=== PATIENT | female | born 1995 | race Caucasian/White ===

== ENCOUNTER 2020-11-13 13:32 | Outpatient (REF) | payer OTHER, SELFPAY ==
[2020-11-13 16:59] LABS: Alanine Aminotransferase 42 U/L (0-31); Albumin Level 4.8 g/dL (3.5-5.0); Alkaline Phosphatase 65 U/L (39-117); Anion Gap 13 (12-20); Aspartate Amino Transferase 28 U/L (5-31); Bilirubin Total 0.5 mg/dL (0.0-1.0); Blood Urea Nitrogen 12 mg/dL (9-16); Carbon Dioxide 28 mmol/L (22-29); Chloride 104 mmol/L (96-108); Cholesterol 191 mg/dL; Estimated Glomerular Filt Rate > 60; Glucose Fasting 82 mg/dL (60-99); HDL Cholesterol 34 mg/dL; LDL Cholesterol Calculated 126 mg/dl; Sodium 141 mmol/L (135-145); Total Protein 7.3 g/dL (6.5-8.0); Triglycerides 157 mg/dL
[2020-11-13 17:19] LABS: TSH reflex Free T4 2.68 uIU/mL (0.32-4.0)
== END 2020-11-13 13:33 | disposition home or self-care (01) ==
LOC: HO.HMGCLDS 13:32
PROVIDERS: PCP Internal Medicine; Visit Provider Internal Medicine
DX: Z00.01 Encounter for general adult medical examination with abnormal findings (principal); E66.9 Obesity, unspecified; F32.9 Major depressive disorder, single episode, unspecified; E28.2 Polycystic ovarian syndrome
CPT/HCPCS: 36415; 80053; 80061; 84443

== ENCOUNTER 2021-06-04 14:19 | Outpatient (REF) | payer OTHER, SELFPAY ==
--- NOTE | ~2021-06-04 | US_ITS ---
EXAMINATION: US PELVIS CLINICAL INFORMATION: Pelvic and perineal pain. COMPARISON: None TECHNIQUE: Ultrasound of the pelvis is performed using both transabdominal and transvaginal transducers along with Doppler. Transvaginal imaging is performed due to inadequate visualization transabdominally. FINDINGS: Uterus: The uterus is anteverted and measures 8.2 x 3.8 x 5.0 cm. IUD is demonstrated in the endometrial canal. The double wall endometrial thickness is 5 mm. No visible fibroid. Adnexa: Both ovaries are visualized. There is normal color flow to the adnexa. There is no ovarian torsion. There is no pelvic ascites or fluid collection. Both ovaries are relatively prominent Right ovary measures 4.4 x 3.4 x 2.6 cm. with a volume of 20 mL. There is peripheral distribution of follicles suggesting the possibility of polycystic ovary syndrome. Left ovary measures 4.4 x 3.5 x 3.0 cm with a volume of 23 mL. There is peripheral distribution of follicles suggesting the possibility of PCO S. US/US pelvic and transvaginal IMPRESSION: 1. IUD in good position in the endometrial canal. 2.. Mildly prominent ovaries with peripheral distribution of follicles suggesting possible PCOS.
== END 2021-06-04 14:20 | disposition home or self-care (01) ==
LOC: HO.HMGCX 14:19
PROVIDERS: PCP Internal Medicine; Visit Provider Internal Medicine
DX: R10.2 Pelvic and perineal pain (principal); Z97.5 Presence of (intrauterine) contraceptive device
CPT/HCPCS: 76830; 76856

== ENCOUNTER 2021-06-30 10:45 | Outpatient (REF) | payer OTHER, SELFPAY ==
[2021-07-01 03:13] LABS: CT PCR NOT DETECTED (Not Detect.); NG PCR NOT DETECTED (Not Detect.)
== END 2021-06-30 10:46 | disposition home or self-care (01) ==
LOC: HO.LAB 10:45
PROVIDERS: PCP Internal Medicine; Visit Provider Advanced Practice Midwife
DX: Z01.419 Encounter for gynecological examination (general) (routine) without abnormal findings (principal); N92.6 Irregular menstruation, unspecified; L68.0 Hirsutism; L70.9 Acne, unspecified; R10.2 Pelvic and perineal pain; E66.9 Obesity, unspecified; E28.2 Polycystic ovarian syndrome; Z68.39 Body mass index [BMI] 39.0-39.9, adult
CPT/HCPCS: 87491; 87591; 88142

== ENCOUNTER → 2022-06-30 09:26 | Outpatient (BNVA) | payer OTHER, SELFPAY | PROVIDERS: PCP Internal Medicine; Visit Provider Advanced Practice Midwife | DX: Z30.432 Encounter for removal of intrauterine contraceptive device (principal); Z01.419 Encounter for gynecological examination (general) (routine) without abnormal findings; Z30.09 Encounter for other general counseling and advice on contraception | CPT/HCPCS: 58301 ==

== ENCOUNTER 2022-08-01 10:27 | Outpatient (REF) | payer OTHER, SELFPAY ==
[2022-08-01 11:03] LABS: MANUAL DIFF FLAG NO
[2022-08-01 11:11] LABS: Basophils Absolute Auto 0.1 X10*3/uL (0.0-0.2); Basophils Percent Auto 0.8 % (0-2); Eosinophils Absolute Auto 0.3 X10*3/uL (0.0-0.4); Eosinophils Percent Auto 3.3 % (0-4); Hematocrit 43.7 % (37.0-47.0); Hemoglobin 14.9 g/dl (12.0-16.0); Imm Gran Abs Auto 0.04 X10*3/uL (0.00-0.03); Imm Gran Pct Auto 0.4 % (0.0-0.4); Lymphocytes Absolute Auto 3.2 X10*3/uL (1.2-4.9); Lymphocytes Percent Auto 35.5 % (20-40); Mean Corpuscular HGB Conc 34.1 g/dl (31.0-35.0); Mean Corpuscular Hemoglobin 29.4 pg (27.0-33.0); Mean Corpuscular Volume 86.4 fL (80.0-98.0); Mean Platelet Volume 9.1 fL (9.4-12.3); Monocytes Absolute Auto 0.6 X10*3/uL (0.1-1.2); Monocytes Percent Auto 6.6 % (2-11); Neutrophils Absolute Auto 4.7 x10*3/uL (2.0-8.3); Neutrophils Percent Auto 53.4 % (45-73); Platelet Count 256 X10*3/uL (160-400); Red Blood Count 5.06 X10*6/uL (4.20-5.50); Red Cell Distribution Width 12.1 % (11.0-16.0); White Blood Count 8.9 X10*3/uL (4.8-10.8)
[2022-08-01 11:49] LABS: Alanine Aminotransferase 52 U/L (0-31); Albumin Level 4.4 g/dL (3.5-5.0); Alkaline Phosphatase 70 U/L (39-117); Anion Gap 11 (12-20); Aspartate Amino Transferase 33 U/L (5-31); Bilirubin Total 0.5 mg/dL (0.0-1.0); Blood Urea Nitrogen 10 mg/dL (9-16); Calcium 9.6 mg/dL (8.4-10.2); Carbon Dioxide 30 mmol/L (22-29); Chloride 102 mmol/L (96-108); Cholesterol 185 mg/dL; Estimated Glomerular Filt Rate > 60; Glucose Fasting 93 mg/dL (60-99); HDL Cholesterol 36 mg/dL; LDL Cholesterol Calculated 122 mg/dl; Potassium 4.2 mmol/L (3.3-5.1); Sodium 139 mmol/L (135-145); Total Protein 6.8 g/dL (6.5-8.0); Triglycerides 138 mg/dL
[2022-08-01 11:53] LABS: Erythrocyte Sedimentation Rate 2 MM/HR (0-20)
[2022-08-01 12:05] LABS: TSH reflex Free T4 4.01 uIU/mL (0.32-4.0)
[2022-08-01 12:43] LABS: Free T4 (Free Thyroxine) 0.83 ng/dL (0.71-1.85)
[2022-08-02 13:24] LABS: CRP High Sensitivity 3.8 mg/L
== END 2022-08-01 10:28 | disposition home or self-care (01) ==
LOC: HO.HMGCLDS 10:27
PROVIDERS: Physician Assistant Medical; PCP Internal Medicine; Visit Provider Internal Medicine
DX: Z00.01 Encounter for general adult medical examination with abnormal findings (principal); E66.9 Obesity, unspecified; F33.2 Major depressive disorder, recurrent severe without psychotic features; G47.9 Sleep disorder, unspecified; M25.50 Pain in unspecified joint
CPT/HCPCS: 36415; 80053; 80061; 84439; 84443; 85025; 85652; 86141

== ENCOUNTER 2022-08-09 11:20 | Outpatient (REF) | payer OTHER, SELFPAY ==
[2022-08-09 14:55] LABS: Erythrocyte Sedimentation Rate 5 MM/HR (0-20)
[2022-08-09 15:29] LABS: Alanine Aminotransferase 62 U/L (0-31); Albumin Level 4.6 g/dL (3.5-5.0); Alkaline Phosphatase 72 U/L (39-117); Anion Gap 14 (12-20); Aspartate Amino Transferase 41 U/L (5-31); Bilirubin Total 0.5 mg/dL (0.0-1.0); Blood Urea Nitrogen 11 mg/dL (9-16); C Reactive Protein 0.44 mg/dL (< or = 0.50); Calcium 9.9 mg/dL (8.4-10.2); Carbon Dioxide 27 mmol/L (22-29); Chloride 102 mmol/L (96-108); Estimated Glomerular Filt Rate > 60; Glucose Random 96 mg/dL (60-115); Potassium 4.4 mmol/L (3.3-5.1); Rheumatoid Factor < 13.0 IU/mL (<15.0); Sodium 139 mmol/L (135-145); TSH reflex Free T4 2.05 uIU/mL (0.32-4.0); Total Protein 7.1 g/dL (6.5-8.0)
[2022-08-10 08:26] LABS: HBS Num1 9.61 mIU/mL (0-7.99); HBc Num1 0.05 S/CO (0.00-0.79); HBsAGNum1 0.39 S/CO (0.00-0.99); Hepatitis A Antibody IgM 0.18 Index (0-0.79); Hepatitis B Core Antibody Nonreactive (Nonreactive); Hepatitis B Surface Antigen Negative (Negative); ~HepC Num1 0.09 S/CO (0.00-0.79); ~Hepatitis A Antibody IgM Nonreactive (Nonreactive); ~Hepatitis C Antibody Nonreactive (Nonreactive)
[2022-08-10 12:22] LABS: HBS Num2 9.18 mIU/mL (0-7.99); HBS Num3 8.53 mIU/mL (0-7.99); ~Hepatitis B Surface Antibody GRAYZONE (Nonreactive)
[2022-08-10 13:14] LABS: Lyme Abs Screen <0.90 index
[2022-08-10 15:19] LABS: Anti DNA DS Antibody 2 IU/mL
== END 2022-08-09 11:21 | disposition home or self-care (01) ==
LOC: HO.HMGCLDS 11:20
PROVIDERS: PCP Internal Medicine; Visit Provider Internal Medicine
DX: M19.90 Unspecified osteoarthritis, unspecified site (principal); R79.82 Elevated C-reactive protein (CRP); R79.89 Other specified abnormal findings of blood chemistry
CPT/HCPCS: 36415; 80053; 84443; 85652; 86140; 86225; 86431; 86617; 86618; 86704; 86706; 86709; 86803; 87340

== ENCOUNTER → 2022-10-10 12:10 | Outpatient (BNVA) | payer OTHER, SELFPAY | PROVIDERS: PCP Internal Medicine; Referring Provider Internal Medicine; Visit Provider Physician Assistant | DX: R74.8 Abnormal levels of other serum enzymes (principal) | CPT/HCPCS: 99202 ==

== ENCOUNTER 2022-11-03 11:22 | Outpatient (REF) | payer OTHER, SELFPAY ==
--- NOTE | ~2022-11-03 | US_ITS ---
EXAMINATION: US COMPLETE ABDOMEN WITH LIVER ELASTOGRAPHY CLINICAL INFORMATION: Abnormal liver function tests COMPARISON: None available. TECHNIQUE: Real-time imaging of the abdominal viscera. Noninvasive ultrasound liver fibrosis assessment is performed using Arvind ElastPQ point quantification shear wave elastography (2D-SWE) with a C5-2 MHz transducer. Multiple elastography samples are obtained. FINDINGS: PANCREAS: Not well visualized due to bowel gas. ABDOMINAL AORTA: The proximal, middle, and distal aortic segments are normal in caliber. INFERIOR VENA CAVA: Visualized portions are normal. LIVER: Liver echotexture is increased. Liver is upper normal in size. The liver contour is normal. No focal lesion or intrahepatic biliary duct dilatation. The right lobe measures 19 cm in length. The left lobe measures 12 cm in length. Portal flow is normal/hepatopedal Shear wave liver elastography median stiffness is 1.4 m/s (reference: normal median stiffness is 1.3 m/s or less). IQR/median stiffness to assess sampling precision is 0.06 (reference: good quality data set is IQR/median stiffness of 0.15 or less). GALLBLADDER: Normal. The gallbladder is physiologically distended without evidence of stones, sludge, polyps, wall thickening or pericholecystic fluid. COMMON BILE DUCT: Normal in caliber measuring 0.3 cm in diameter. RIGHT KIDNEY: Normal. No hydronephrosis. No renal calculi or focal parenchymal lesions. The kidney measures 11.5 cm in maximum dimension. LEFT KIDNEY: Normal. No hydronephrosis. No renal calculi or focal parenchymal lesions. The kidney measures 12 cm in maximum dimension. SPLEEN: Upper normal in size. The spleen measures 13 cm in maximum dimension. FREE FLUID: None. US/US abdomen comp w elastography IMPRESSION: 1. Impression: Slightly enlarged echogenic liver probably representing fatty infiltration. Limited visualization of the pancreas. 2. Liver elastography: Adequate liver sampling. In the absence of other known clinical signs, rules out compensated advanced chronic liver disease. REFERENCE: Society of Radiologists in Ultrasound Liver Stiffness Thresholds (2020): LIVER STIFFNESS THRESHOLDS: *Liver Stiffness equal or less than 1.3 m/s: High probability of being normal. *Liver Stiffness less than 1.7 m/s: *Liver Stiffness 1.7-2.1 m/s: Suggestive of compensated advanced chronic liver disease but need further test for confirmation. *Liver Stiffness over 2.1 m/s: Rules in compensated advanced chronic liver disease. *Liver Stiffness over 2.4 m/s: Suggestive of clinically significant portal hypertension. QUALITY OF DATA SET: *IQR/Median value equal or less than 0.15 implies a quality data set. *IQR/Median value over 0.15 implies a poor quality data set. SIGNIFICANT CHANGE FROM PRIOR EXAM: Significant change if liver stiffness measurement is 10% or greater from prior exam. OTHER CONSIDERATIONS: The stage of liver fibrosis may be overestimated in the setting of acute hepatitis, liver inflammation, elevated liver function tests, hepatic vascular congestion, obstructive cholestasis, non-fasting state, and infiltrative diseases such as amyloidosis and lymphoma. In some patients with NAFLD, the liver stiffness thresholds for compensated advanced chronic liver disease may be lower. In causes other than viral hepatitis and NAFLD, liver stiffness thresholds are not well established.
== END 2022-11-03 11:23 | disposition home or self-care (01) ==
LOC: HO.US 11:22
PROVIDERS: PCP Internal Medicine; Visit Provider Physician Assistant
DX: E28.2 Polycystic ovarian syndrome (principal); R74.9 Abnormal serum enzyme level, unspecified; E66.9 Obesity, unspecified
CPT/HCPCS: 76705; 76981

== ENCOUNTER → 2022-11-08 10:58 | Outpatient (BNVA) | payer OTHER, SELFPAY | PROVIDERS: PCP Internal Medicine; Visit Provider Student in an Organized Health Care Education/Training Program | DX: M79.671 Pain in right foot (principal); M79.672 Pain in left foot | CPT/HCPCS: 99202 ==

== ENCOUNTER 2022-11-16 09:52 | Outpatient (REF) | payer OTHER, SELFPAY ==
--- NOTE | ~2022-11-16 | XR_ITS ---
EXAMINATION: Bilateral knee x-ray CLINICAL INFORMATION: Rheumatoid arthritis COMPARISON: None. TECHNIQUE: 4 views of each knee FINDINGS: Right: Bone alignment is normal. No fracture or dislocation. Small osteophytes at the medial femoral tibial and patellofemoral joints. Normal bone mineralization. No joint effusion. Left: Bone alignment is normal. No fracture or dislocation. Small osteophytes at the medial femoral tibial and patellofemoral joints. Normal bone mineralization. No joint effusion. XR/XR knee LT 3V IMPRESSION: Small osteophytes at the medial femoral tibial and patellofemoral joints bilaterally.
--- NOTE | ~2022-11-16 | XR_ITS ---
EXAMINATION: Bilateral foot x-ray CLINICAL INFORMATION: Rheumatoid arthritis COMPARISON: None. TECHNIQUE: 3 views of each foot FINDINGS: Right: Bone alignment is normal. No fracture or dislocation. Normal joint spaces. Normal bone mineralization. Small calcaneal spurs. Left: Bone alignment is normal. No fracture or dislocation. Normal joint spaces. Normal bone mineralization. Normal soft tissues. XR/XR foot RT min 3V IMPRESSION: Right: Small calcaneal spurs. Left: Unremarkable exam.
--- NOTE | ~2022-11-16 | XR_ITS ---
EXAMINATION: Bilateral knee x-ray CLINICAL INFORMATION: Rheumatoid arthritis COMPARISON: None. TECHNIQUE: 4 views of each knee FINDINGS: Right: Bone alignment is normal. No fracture or dislocation. Small osteophytes at the medial femoral tibial and patellofemoral joints. Normal bone mineralization. No joint effusion. Left: Bone alignment is normal. No fracture or dislocation. Small osteophytes at the medial femoral tibial and patellofemoral joints. Normal bone mineralization. No joint effusion. XR/XR knee standing BI IMPRESSION: Small osteophytes at the medial femoral tibial and patellofemoral joints bilaterally.
--- NOTE | ~2022-11-16 | XR_ITS ---
EXAMINATION: Bilateral knee x-ray CLINICAL INFORMATION: Rheumatoid arthritis COMPARISON: None. TECHNIQUE: 4 views of each knee FINDINGS: Right: Bone alignment is normal. No fracture or dislocation. Small osteophytes at the medial femoral tibial and patellofemoral joints. Normal bone mineralization. No joint effusion. Left: Bone alignment is normal. No fracture or dislocation. Small osteophytes at the medial femoral tibial and patellofemoral joints. Normal bone mineralization. No joint effusion. XR/XR knee RT 3V IMPRESSION: Small osteophytes at the medial femoral tibial and patellofemoral joints bilaterally.
--- NOTE | ~2022-11-16 | XR_ITS ---
EXAMINATION: Bilateral foot x-ray CLINICAL INFORMATION: Rheumatoid arthritis COMPARISON: None. TECHNIQUE: 3 views of each foot FINDINGS: Right: Bone alignment is normal. No fracture or dislocation. Normal joint spaces. Normal bone mineralization. Small calcaneal spurs. Left: Bone alignment is normal. No fracture or dislocation. Normal joint spaces. Normal bone mineralization. Normal soft tissues. XR/XR foot LT min 3V IMPRESSION: Right: Small calcaneal spurs. Left: Unremarkable exam.
[2022-11-16 10:21] LABS: MANUAL DIFF FLAG NO
[2022-11-16 10:38] LABS: Basophils Absolute Auto 0.1 X10*3/uL (0.0-0.2); Basophils Percent Auto 0.6 % (0-2); Eosinophils Absolute Auto 0.2 X10*3/uL (0.0-0.4); Eosinophils Percent Auto 2.7 % (0-4); Hematocrit 44.1 % (37.0-47.0); Hemoglobin 14.9 g/dl (12.0-16.0); Imm Gran Abs Auto 0.03 X10*3/uL (0.00-0.03); Imm Gran Pct Auto 0.4 % (0.0-0.4); Lymphocytes Absolute Auto 3.4 X10*3/uL (1.2-4.9); Lymphocytes Percent Auto 41.9 % (20-40); Mean Corpuscular HGB Conc 33.8 g/dl (31.0-35.0); Mean Corpuscular Hemoglobin 28.8 pg (27.0-33.0); Mean Corpuscular Volume 85.3 fL (80.0-98.0); Mean Platelet Volume 9.1 fL (9.4-12.3); Monocytes Absolute Auto 0.6 X10*3/uL (0.1-1.2); Monocytes Percent Auto 6.7 % (2-11); Neutrophils Absolute Auto 3.9 x10*3/uL (2.0-8.3); Neutrophils Percent Auto 47.7 % (45-73); Platelet Count 249 X10*3/uL (160-400); Red Blood Count 5.17 X10*6/uL (4.20-5.50); Red Cell Distribution Width 11.9 % (11.0-16.0); White Blood Count 8.2 X10*3/uL (4.8-10.8)
[2022-11-16 11:16] LABS: Erythrocyte Sedimentation Rate 2 MM/HR (0-20)
[2022-11-16 11:19] LABS: Alanine Aminotransferase 67 U/L (0-31); Albumin Level 4.4 g/dL (3.5-5.0); Alkaline Phosphatase 76 U/L (39-117); Anion Gap 12 (12-20); Aspartate Amino Transferase 34 U/L (5-31); Bilirubin Total 0.4 mg/dL (0.0-1.0); Blood Urea Nitrogen 9 mg/dL (9-16); C Reactive Protein 0.24 mg/dL (< or = 0.50); Calcium 9.7 mg/dL (8.4-10.2); Carbon Dioxide 27 mmol/L (22-29); Chloride 107 mmol/L (96-108); Cholesterol 183 mg/dL; Estimated Glomerular Filt Rate > 60; Glucose Random 89 mg/dL (60-115); HDL Cholesterol 34 mg/dL; LDL Cholesterol Calculated 110 mg/dl; Potassium 4.4 mmol/L (3.3-5.1); Sodium 142 mmol/L (135-145); Total Protein 6.9 g/dL (6.5-8.0); Triglycerides 198 mg/dL
[2022-11-16 11:27] LABS: Appearance Urine Clear; Color Urine Yellow; Glucose Urine UA Negative (Negative); Leukocyte Esterase Urine Negative (Negative); Nitrite Urine Negative (Negative); PH 5.5 (5.0-9.0); Urine Blood Negative (Negative); Urine Ketones Negative (Negative); Urine Protein Negative (Neg-Trace)
[2022-11-16 11:34] LABS: Bacteria Urine None Seen (None Seen); Hyaline Casts Urine 0-2 /LPF (0-2); RBC Urine 0-2 /HPF (0-2); Squamous Epithelial Cell Urine 0-2 /HPF (0-2); WBC Urine 0-5 /HPF (0-5)
[2022-11-16 11:51] LABS: HBS Num1 8.96 mIU/mL (0-7.99); HBc Num1 0.15 S/CO (0.00-0.79); HBsAGNum1 0.35 S/CO (0.00-0.99); Hepatitis A Antibody IgM 0.16 Index (0-0.79); Hepatitis B Core Antibody Nonreactive (Nonreactive); Hepatitis B Surface Antigen Negative (Negative); ~HepC Num1 0.13 S/CO (0.00-0.79); ~Hepatitis A Antibody IgM Nonreactive (Nonreactive); ~Hepatitis C Antibody Nonreactive (Nonreactive)
[2022-11-16 12:26] LABS: Creatinine Urine 78.39 mg/dL; Total Protein Urine Random < 7 mg/dL (<12)
[2022-11-16 14:37] LABS: HBS Num2 8.45 mIU/mL (0-7.99); HBS Num3 8.65 mIU/mL (0-7.99); ~Hepatitis B Surface Antibody GRAYZONE (Nonreactive)
[2022-11-17 20:29] LABS: Alpha 1 Anti-trypsin 108 mg/dL (83-199); Ceruloplasmin 22 mg/dL (18-53)
[2022-11-17 22:29] LABS: Anti DNA DS Antibody 1 IU/mL; Antibody to SS-A Antigen <1.0 NEG AI (<1.0 NEG); Antibody to SS-B Antigen <1.0 NEG AI (<1.0 NEG); SM/Ribonucleoprotein Ab <1.0 NEG AI (<1.0 NEG); Smith Protein <1.0 NEG AI (<1.0 NEG)
[2022-11-17 23:44] LABS: Prot Elec - Albumin 4.4 g/dL (3.8-4.8); Prot Elec - Alpha1 0.3 g/dL (0.2-0.3); Prot Elec - Alpha2 0.7 g/dL (0.5-0.9); Prot Elec - Beta 1 0.5 g/dL (0.4-0.6); Prot Elec - Beta 2 0.4 g/dL (0.2-0.5); Prot Elec - Gamma 0.9 g/dL (0.8-1.7)
[2022-11-18 13:53] LABS: Mitochondrial Antibodies NEGATIVE (NEGATIVE)
[2022-11-18 15:14] LABS: TS Negative Control Passed; TS Panel A 0; TS Panel B 0; TS Positive Control Passed; TSpotTB Negative (Negative)
[2022-11-18 15:43] LABS: Cyclic Citrullinated Peptide <16 UNITS
[2022-11-18 19:44] LABS: Complement C3 128 mg/dL (83-193)
[2022-11-19 18:44] LABS: IgA 313 mg/dL (47-310); IgG 896 mg/dL (600-1640); IgM 163 mg/dL (50-300)
[2022-11-21 12:49] LABS: Anti Nuclear Antibody Screen NEGATIVE (NEGATIVE)
[2022-11-21 13:04] LABS: Smooth Muscle Antibody <20 U (<20)
[2022-11-22 14:42] LABS: DNAds, Crithidia Antibody Negative (Negative)
== END 2022-11-16 09:53 | disposition home or self-care (01) ==
LOC: HO.LAB 09:52
PROVIDERS: Absent Provider Physician Assistant; PCP Internal Medicine; Visit Provider Student in an Organized Health Care Education/Training Program
DX: R74.01 Elevation of levels of liver transaminase levels (principal); K76.0 Fatty (change of) liver, not elsewhere classified; R74.8 Abnormal levels of other serum enzymes; M06.9 Rheumatoid arthritis, unspecified; M32.9 Systemic lupus erythematosus, unspecified; Z11.59 Encounter for screening for other viral diseases; Z11.7 Encounter for testing for latent tuberculosis infection
CPT/HCPCS: 36415; 73562; 73564; 73565; 73630; 80053; 80061; 81001; 82103; 82390; 82784; 84156; 84165; 85025; 85652; 86015; 86038; 86039; 86140; 86160; 86200; 86225; 86235; 86255; 86256; 86334; 86481; 86704; 86706; 86709; 86803; 87340

== ENCOUNTER 2023-02-07 16:03 | Outpatient (AMB) | payer OTHER, SELFPAY ==
[2023-02-07 16:01] VITALS: BP 124/78; PULSE 87; TEMP 36.7; O2SAT 98; BMI 39.2
--- NOTE | 2023-02-07 16:01 | MHC.OFFVIS ---
Intake Vital Signs 02/07/23 16:01 Height 5 ft 3 in Weight 221 lb 5.506 oz BMI 39.2 BP 124/78 Blood Pressure Location Rt brachial Position Sitting Pulse 87 Pulse Source Pulse Oximeter Temp 98.1 F Temp Source Tympanic Pulse Oximetry (%) 98 Oxygen Delivery Method Room Air Intake Visit Reasons: RA/PsA Enrollment Coordinator Required: No Accompanied by: Self / Same As Patient Allergies No Known Allergies Allergy (Verified 02/07/23 16:08) Medication List - Last Reconciled 02/07/23 by Nawaf Khan MD ibuprofen 800 mg PO Q8H PRN PNV,calcium [id number] acid 27 mg iron- 1 mg ( Vitamins Plus Low Iron) 1 tab PO DAILY HPI HPI Comments History of Present Illness Details Patient returns for follow-up after completion of her blood work and ultrasound. Continues to feel about the same overall. Initial history: This is a 26 year old female who presents for evaluation of diffuse joint pain. Patient has been having pain in both knees associated with cracking worse with activity such as going up and down the stairs but sometimes she has pain while sitting down. This has been going on for years. Over the last 6-7 months she has been having pain in other areas such as her feet, shins and most recently her hands. The pain starts randomly and can last hours, happens multiple times throughout the week. The majority of her pain is in her toes. She is unaware of any joint swelling. She has morning stiffness of her entire body lasting around 1 hour. She took NSAIDs with some relief. Also prednisone 10 mg daily provide some relief. 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 Her grandmother sister had Crohn's disease and multiple sclerosis. She is not aware of any other autoimmune rheumatic disease. Denies any skin rashes no history of DVT/PE no blood or froth in urine [facility] Medical History (Updated 02/07/23 @ 16:34 by Nawaf Khan MD) Obesity (BMI 30-39.9) PCOS (polycystic ovarian syndrome) Surgical History No history of previous surgery Family History Maternal Aunt Acute Crohn's disease Multiple sclerosis Maternal Grandmother Fibromyalgia Other Mental health disorder Social History Household Members Other:: BF- 2 kids- Housing: House Alcohol intake: never Patient Tobacco Use Status: Never used Tobacco e-Cigarette/Vaping Use: Never Used Second Hand Smoke Exposure: No service: No Current occupational status: employed 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 Cognitive needs: No Hearing needs: No Vision needs: No Female Reproductive History Menstrual Age of Menarche: 14 Review of Systems [facility] [place] Reports arthralgias and Reports stiffness Physical Exam Const General: cooperative Nutritional Appearance: obese Limitations: no limitations HEENT Head: Yes normocephalic and Yes atraumatic Resp Effort & Inspection: normal respiratory effort and able to speak in complete sentences Skin General skin exam: no rashes or lesions noted Extrem Other: Extensor tendon tenderness both hands in the 2nd through 5th fingers otherwise no swollen or tender joints or pain with flexion extension Bilateral positive MCP squeeze test No fibromyalgia tender points Bilateral diffuse MTP tenderness and positive MTP squeeze test Normal nailfold capillaroscopy Assessment & Plan Assessment & Plan (1) Seronegative arthritis: Code(s): M13.80 - Other specified arthritis, unspecified site Plan: This is a 26-year-old female presents for evaluation of diffuse joint pain. On exam patient has multiple tender joints and tendons. MSK ultrasound of both feet showing left foot synovitis and left 2nd MTP synovitis. Serology is negative with normal inflammatory markers. Clinical picture consistent with new onset seronegative rheumatoid arthritis. Will need to start DMARDs. Given transaminitis multiple conventional synthetic DMARDs would be contraindicated including methotrexate, leflunomide, sulfasalazine. Discussed risks and benefits of hydroxychloroquine. Patient agreed to proceed. Will start hydroxychloroquine 200 mg Twice daily. Labs before next visit in 3 months (2) Long-term use of hydroxychloroquine: Code(s): Z79.899 - Other buttermaker (current) drug therapy Plan: Side effects of Plaquenil were discussed with patient is including but not limited to allergic reaction, retinal toxicity, cardiomyopathy, myopathy. Referred patient to Ophthalmology for eye exam Plan I spent 26 minutes reviewing patient's chart, evaluating patient, ordering diagnostic workup, counseling patient and documenting in the chart Orders: Orders Complete Blood Count Auto Diff 3 Months M06.9 - Rheumatoid arthritis, unspecified Comprehensive Met. Panel 3 Months M06.9 - Rheumatoid arthritis, unspecified C Reactive Protein 3 Months M06.9 - Rheumatoid arthritis, unspecified Erythrocyte Sedimentation Rate 3 Months M06.9 - Rheumatoid arthritis, unspecified Referrals Ophthalmology Referral Z79.899 - Other buttermaker (current) drug therapy Medications: New hydroxychloroquine with meal 200 mg PO BID 60 tabs 2RF Coding Level of Care Code Est Pt Level 4 (86251) Diagnoses Seronegative arthritis M13.80 Long-term use of hydroxychloroquine Z79.899
== END 2023-02-07 16:31 | disposition home or self-care (01) ==
PROVIDERS: PCP Internal Medicine; Visit Provider Student in an Organized Health Care Education/Training Program
DX: M13.80 Other specified arthritis, unspecified site (principal); Z79.899 Other long term (current) drug therapy
CPT/HCPCS: 99214

== ENCOUNTER → 2023-02-07 16:03 | Outpatient (BNVA) | payer OTHER, SELFPAY | PROVIDERS: PCP Internal Medicine; Visit Provider Student in an Organized Health Care Education/Training Program | DX: M13.80 Other specified arthritis, unspecified site (principal); Z79.899 Other long term (current) drug therapy | CPT/HCPCS: 99212 ==

== ENCOUNTER 2023-07-03 08:11 | Outpatient (AMB) | payer OTHER, SELFPAY ==
--- NOTE | 2023-07-03 08:16 | MHC.OFFVIS ---
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 Doing well with concerns: Irregular menses, heavy x 2/4d. PCOS cycles every 4 months this year. Plans a future . Not currently taking her prenatals consistently. Currently is sexually active. She denies vaginal itching and irritation. STI screening offered; she declines. She tries to eat healthy and stays active with exercise. Denies family history of breast, ovarian or colon cancer. Last pap smear 2020, negative. 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 Cognitive needs: No Hearing needs: No Vision needs: No Female Reproductive History Menstrual Age of Menarche: 14 Total pregnancies: 2 Full term: 1 Premature: 1 Number of Living Children: 2 Date of last pap smear: 06/30/21 (neg) Review of Systems Const All systems reviewed & are unremarkable except as noted in HPI and below Reports as per HPI Eyes Reports no additional complaints ENT Reports no additional complaints Card Reports no additional complaints Resp Reports no additional complaints GI Reports as per HPI and Reports no additional complaints Reports as per HPI Musc Reports no additional complaints Skin/Breast Reports as per HPI Neuro Reports no additional complaints Psych Reports no additional complaints Endo Reports no additional complaints Mo/Lymph Reports no additional complaints Aller/Immun Reports no additional complaints Physical Exam Vital Signs: Last Vital Signs BP 120/82 07/03/23 08:17 BMI result Body Mass Index 38.6 Const General: cooperative, healthy appearing, no acute distress, well developed and alert Orientation/consciousness: patient oriented x3 HEENT Head: Yes normal to inspection Eyes General: appearance normal, both eyes and all related structures Neck Neck: Yes normal visual inspection Thyroid: Thyroid normal Chest Chest palpation & inspection: normal inspection of the chest and other (no puckering, dimpling, peau de orange, retraction, discharge, masses) Breast/axilla inspection: normal inspection of the breasts Breast/axilla palpation: normal palpation of the breasts Resp Effort & Inspection: normal respiratory effort GI Inspection: Yes normal to inspection Palpation (GI): Soft to palpation Rectal Exam - Female: deferred General: Yes bladder normal to palpation External Female Exam: normal external appearance and normal appearance of the urethra Speculum Exam - Vagina: normal appearance of the vagina, normal palpation and normal vaginal discharge Speculum Exam - Cervix: normal appearance of the cervix and normal palpation Bimanual exam- vagina & uterus: normal bimanual exam, normal palpation, uterine size normal, bladder normal to palpation, normal palpation and non-tender Bimanual Exam- Adnexa, other: no masses Skin General skin exam: no rashes or lesions noted Rashes: no rashes Neuro General: patient oriented x3 Cognition (Neuro): normal cognition Extrem General: Yes normal to inspection Psych Attitude: cooperative Thought process: Normal thought process present Assessment & Plan Assessment & Plan (1) Encounter for well woman exam with routine gynecological exam: Code(s): Z01.419 - Encounter for gynecological examination (general) (routine) without abnormal findings Plan Discussed: Current recommendations for pap smears per ASCCP guidelines. Breast awareness and periodic breast exams. Maintain a healthy lifestyle including a well balanced diet and routine exercise. Restart prenatals discussed the importance of folic acid in prevention of neural tube defects. Discussed infertility services, currently has state insurance which is not covered. Rx for Provera discussed importance of cycling more often with anovulatory cycles. If suspected to do a home test and call the office for care. All of her questions and concerns were addressed to the best of my ability. RTO in one year for annual school administrator examination. This note is constructed using voice recognition software. While every effort has been made to ensure accuracy, skidder driver errors may have been included. Medications: New PNV,calcium 73-mzqn-[id number] acid 27 mg iron- 1 mg ( Vitamins Plus Low Iron) 1 tab PO DAILY 90 tabs 4RF Coding Level of Care Code Est Pt Prev Care 18-39y(20937) Diagnoses Encounter for well woman exam with routine gynecological exam Z01.419
[2023-07-03 08:17] VITALS: BP 120/82; BMI 38.6
== END 2023-07-03 08:43 | disposition home or self-care (01) ==
PROVIDERS: PCP Internal Medicine; Visit Provider Advanced Practice Midwife
DX: Z01.419 Encounter for gynecological examination (general) (routine) without abnormal findings (principal)
CPT/HCPCS: 99395

== ENCOUNTER → 2023-07-03 08:11 | Outpatient (BNVA) | payer OTHER, SELFPAY | PROVIDERS: PCP Internal Medicine; Visit Provider Advanced Practice Midwife | DX: Z01.419 Encounter for gynecological examination (general) (routine) without abnormal findings (principal) | CPT/HCPCS: 99395 ==